=== PATIENT | male | born 1970 | race Caucasian/White ===

== ENCOUNTER → 2017-01-12 | Outpatient (CLI) | payer OTHER ==
[~2017-01-12] MED LIST: /MOXI40TA PO; /PANT40TA PO; IBUP600T PO; PERC5TAB8 PO; TYLENOL #3 OR; VALI10TA OR
[2017-01-12 13:54] LABS: ANION GAP 8 MEQ/L (8-16); BLOOD UREA NITROGEN 13 MG/DL (7-18); CARBON DIOXIDE LEVEL 25 MEQ/L (21-32); CHLORIDE LEVEL 106 MEQ/L (98-107); CHOLESTEROL LEVEL 179 MG/DL (<200); CREATININE FOR GFR 1.03 MG/DL (0.70-1.30); FREE T4 0.91 NG/DL (0.76-1.46); GLOMERULAR FILTRATION RATE > 60.0 (>60); GLUCOSE, FASTING 103 MG/DL (70-105); POTASSIUM SERUM 4.4 MEQ/L (3.5-5.1); SODIUM LEVEL 139 MEQ/L (136-145); TRIGLYCERIDES LEVEL 108 MG/DL (<150)
== END ==
LOC: M LAB 12:20
PROVIDERS: ATTEND Physician Assistant Medical
DX: E78.5 Hyperlipidemia, unspecified (principal)

== ENCOUNTER → 2017-03-25 | Outpatient (REF) | payer OTHER ==
[2017-03-26 13:26] LABS: ALBUMIN 4.2 GM/DL (3.2-5.2); ALKALINE PHOSPHATASE 107 U/L (45-117); ALT/SGPT 29 U/L (12-78); ANION GAP 7 MEQ/L (8-16); AST/SGOT 20 U/L (15-37); BILIRUBIN,TOTAL 0.6 MG/DL (0.2-1.0); BLOOD UREA NITROGEN 18 MG/DL (7-18); CALCIUM LEVEL 9.3 MG/DL (8.5-10.1); CARBON DIOXIDE LEVEL 25 MEQ/L (21-32); CHLORIDE LEVEL 104 MEQ/L (98-107); CREATININE FOR GFR 1.06 MG/DL (0.70-1.30); GLOMERULAR FILTRATION RATE > 60.0 (>60); GLUCOSE, FASTING 68 MG/DL (70-105); SODIUM LEVEL 136 MEQ/L (136-145); TOTAL PROTEIN 7.7 GM/DL (6.4-8.2)
[2017-03-26 13:27] LABS: ADD MANUAL DIFFER YES; MEAN CORPUSCULAR HEMOGLOBIN 30.1 pg (27.0-33.0); MEAN CORPUSCULAR HGB CONC 32.9 g/dl (32.0-36.5); MEAN CORPUSCULAR VOLUME 91.5 fl (80.0-96.0); PLATELET COUNT, AUTOMATED 444 k/mm3 (150-450); RED CELL DISTRIBUTION WIDTH 12.4 % (11.5-14.5)
[2017-03-26 14:06] LABS: POTASSIUM SERUM 7.9 MEQ/L (3.5-5.1)
[2017-03-26 14:51] LABS: ANISOCYTOSIS 1+; BASOPHILS 2 % (0-4); EOSINOPHILS 5 % (0-5)
== END ==
LOC: M LAB REF 12:12
PROVIDERS: ATTEND Family Medicine Addiction Medicine
DX: D75.1 Secondary polycythemia (principal)

== ENCOUNTER → 2018-08-05 | Outpatient (REF) | payer OTHER ==
[2018-08-05 13:58] LABS: BASO # 0.1 10^3/uL (0.0-0.2); EOS # 0.4 10^3/uL (0.0-0.50); EOS % 5.2 % (0.0-3.0); HEMATOCRIT 46.1 % (42.0-52.0); HEMOGLOBIN 15.3 g/dl (13.5-17.5); IMMATURE GRANULOCYTE % 0.5 % (0-3.0); LYMPH # 1.4 10^3/uL (1.5-4.5); LYMPH % 17.5 % (24.0-44.0); MEAN CORPUSCULAR HEMOGLOBIN 30.8 pg (27.0-33.0); MEAN CORPUSCULAR HGB CONC 33.2 g/dl (32.0-36.5); MEAN CORPUSCULAR VOLUME 92.9 fl (80.0-96.0); MONO # 0.8 10^3/uL (0.0-0.8); MONO % 9.5 % (0.0-5.0); NEUTROPHILS # 5.3 10^3/uL (1.8-7.7); NEUTROPHILS % 66.3 % (36.0-66.0); PLATELET COUNT, AUTOMATED 466 10^3/uL (150-450); RED BLOOD COUNT 4.96 10^6/uL (4.30-6.10); RED CELL DISTRIBUTION WIDTH 12.9 % (11.5-14.5); WHITE BLOOD COUNT 7.9 10^3/uL (4.0-10.0)
[2018-08-05 14:08] LABS: ALBUMIN 3.6 GM/DL (3.2-5.2); ALBUMIN/GLOBULIN RATIO 0.97 (1.00-1.93); ALKALINE PHOSPHATASE 123 U/L (45-117); ALT/SGPT 46 U/L (12-78); ANION GAP 8 MEQ/L (8-16); AST/SGOT 18 U/L (7-37); BILIRUBIN,TOTAL 0.5 MG/DL (0.2-1.0); BLOOD UREA NITROGEN 11 MG/DL (7-18); CALCIUM LEVEL 9.1 MG/DL (8.5-10.1); CARBON DIOXIDE LEVEL 27 MEQ/L (21-32); CHLORIDE LEVEL 105 MEQ/L (98-107); CHOLESTEROL LEVEL 186 MG/DL (<200); CREATININE FOR GFR 1.04 MG/DL (0.70-1.30); GLOMERULAR FILTRATION RATE > 60.0 (>60); GLUCOSE, FASTING 101 MG/DL (70-100); HDL CHOLESTEROL 40 MG/DL (>40); LDL CHOLESTEROL 125 MG/DL (<100); NON-HDL-C 146 MG/DL; POTASSIUM SERUM 4.4 MEQ/L (3.5-5.1); SODIUM LEVEL 140 MEQ/L (136-145); TOTAL PROTEIN 7.3 GM/DL (6.4-8.2); TRIGLYCERIDES LEVEL 103 MG/DL (<150)
== END ==
LOC: M LAB REF 13:05
DX: Z00.01 Encounter for general adult medical examination with abnormal findings (principal); D75.1 Secondary polycythemia

== ENCOUNTER 2018-09-05 12:36 | Emergency (ER) | payer OTHER | END 2018-09-05 14:13 | disposition home or self-care (01) | LOC: M ED 12:36 | DX: J02.9 Acute pharyngitis, unspecified (principal); E11.9 Type 2 diabetes mellitus without complications; I10 Essential (primary) hypertension; K21.9 Gastro-esophageal reflux disease without esophagitis; F17.210 Nicotine dependence, cigarettes, uncomplicated | CPT/HCPCS: 87880 ==

== ENCOUNTER 2020-09-20 21:58 | Emergency (ER) | payer OTHER ==
[~2020-09-20] VITALS: Ht 182.9 cm; Wt 112.7 kg
[2020-09-20 21:58] VITALS: BP 149/81
[~2020-09-20 21:58] MED LIST changes: -/MOXI40TA PO; -/PANT40TA PO; +AMOX500C PO; +AVEL1TAB2 PO; +MAGICMW MT; +PROT1TAB2 PO
== END 2020-09-20 22:54 | disposition home or self-care (01) ==
LOC: M ED 21:58
DX: S01.01XA Laceration without foreign body of scalp, initial encounter (principal); W00.0XXA Fall on same level due to ice and snow, initial encounter; Y92.018 Other place in single-family (private) house as the place of occurrence of the external cause; I10 Essential (primary) hypertension; E11.9 Type 2 diabetes mellitus without complications; K21.9 Gastro-esophageal reflux disease without esophagitis

== ENCOUNTER 2020-09-26 16:21 | Emergency (ER) | payer OTHER ==
[~2020-09-26] VITALS: Ht 182.9 cm; Wt 113.2 kg
[2020-09-26 16:21] VITALS: BP 124/69
== END 2020-09-26 18:29 | disposition home or self-care (01) ==
LOC: M ED 16:21
DX: Z48.02 Encounter for removal of sutures (principal)

== ENCOUNTER 2023-04-03 17:42 | Emergency (ER) | payer OTHER ==
[~2023-04-03] VITALS: Ht 180.3 cm; Wt 106.9 kg
[2023-04-03 20:08] LABS: HIV 1&2 SCREEN NEGATIVE (NEGATIVE)
[2023-04-03 21:01] VITALS: BP 139/82; TEMP 98.2; O2SAT 99
[2023-04-03 21:59] LABS: GC DNA AMPLIFICATION NEGATIVE (NEGATIVE)
== END 2023-04-03 21:04 | disposition home or self-care (01) ==
LOC: M ED 17:42
DX: Z11.3 Encounter for screening for infections with a predominantly sexual mode of transmission (principal)

== ENCOUNTER 2023-04-27 00:31 | Emergency (ER) | payer OTHER ==
[~2023-04-27] VITALS: Ht 180.3 cm; Wt 105.3 kg
[2023-04-27 00:32] VITALS: TEMP 97.5
[2023-04-27] MEDS ORDERED: APIXABAN 5 MG TAB (ELIQUIS) PO ONE (02:05)
[2023-04-27] MEDS ORDERED: ELIQ5TAB PO (02:07)
[2023-04-27 03:40] LABS: BASO # 0.1 10^3/uL (0.0-0.2); BASO % 0.7 % (0.0-1.0); EOS # 0.1 10^3/uL (0.0-0.5); EOS % 0.7 % (0.0-3.0); HEMATOCRIT 45.5 % (42.0-52.0); HEMOGLOBIN 15.2 g/dl (13.5-17.5); LYMPH # 1.3 10^3/uL (1.5-5.0); LYMPH % 9.5 % (24.0-44.0); MEAN CORPUSCULAR HEMOGLOBIN 30.3 pg (27.0-33.0); MEAN CORPUSCULAR HGB CONC 33.4 g/dl (32.0-36.5); MEAN CORPUSCULAR VOLUME 90.6 fl (80.0-96.0); MONO # 1.1 10^3/uL (0.0-0.8); MONO % 8.2 % (2.0-8.0); NEUTROPHILS # 10.8 10^3/uL (1.5-8.5); NEUTROPHILS % 80.3 % (36.0-66.0); PLATELET COUNT, AUTOMATED 350 10^3/uL (150-450); RED BLOOD COUNT 5.02 10^6/uL (4.30-6.10); WHITE BLOOD COUNT 13.4 10^3/uL (4.0-10.0)
[2023-04-27 03:46] LABS: INR 0.93; PROTHROMBIN TIME 12.7 SECONDS (12.5-14.5)
[2023-04-27 03:47] LABS: PARTIAL THROMBOPLASTIN TIME 26.6 SECONDS (24.8-34.2)
[2023-04-27 03:51] VITALS: BP 131/79; O2SAT 96
[2023-04-27 04:06] LABS: ERYTHROCYTE SEDIMENTATION RATE 84 mm/hr (0-20)
[2023-04-30 10:11] LABS: DRVV SCREEN 41.1 SECONDS
[2023-04-30 10:16] LABS: PTT LUPUS TYPE ANTICOAG SCREEN 0.99 (0-1.20)
[2023-05-05 11:11] LABS: ANCA-ATYPICAL <1:20 titer (Neg:<1:20); ANTI THROMBIN 3 ANTIGEN IMMUNO 92 % (72-124); ANTI THROMBIN 3 FUNCT ACTIVITY 126 % (75-135); ANTINUCLEAR ANTIBODIES DIRECT Negative (Negative); CARDIOLIPIN IGA ANTIBODY <9 APL U/mL (0-11); CARDIOLIPIN IGG ANTIBODY <9 GPL U/mL (0-14); CARDIOLIPIN IGM ANTIBODY <9 MPL U/mL (0-12); CYTOPLASMIC NEUTROP AB ANCA-C <1:20 titer (Neg:<1:20); HOMOCYST(E)INE SERUM 14.4 umol/L (0.0-14.5); PERINUCLEAR AB ANCA-P <1:20 titer (Neg:<1:20); PROTEIN C ANTIGEN 126 % (60-150); PROTEIN S ANTIGEN FREE 137 % (61-136); PROTEIN S ANTIGEN TOTAL 132 % (60-150); SJOGREN'S ANTI SS-A <0.2 AI (0.0-0.9); SJOGREN'S ANTI SS-B <0.2 AI (0.0-0.9)
== END 2023-04-27 04:15 | disposition home or self-care (01) ==
LOC: M ED 00:31
DX: I82.402 Acute embolism and thrombosis of unspecified deep veins of left lower extremity (principal)